=== PATIENT | female | born 1985 | race Caucasian/White ===

== ENCOUNTER 2016-11-25 12:03 | Inpatient (IN) ==
[2016-11-25] MEDS ORDERED: ATIVAN ONE (12:10)
[2016-11-25] MEDS ORDERED: NS 1,000 ML IV ONE (12:22)
[2016-11-25 12:56] LABS: MANUAL DIFF NEEDED? NO
[2016-11-25 13:08] LABS: BASO% 0.2 % (0.0-0.8); EOS# 0.09 X1000 (0.0-0.7); HEMATOCRIT 38.9 % (37.0-47.0); HEMOGLOBIN 12.8 g/dL (12.0-16.0); LYMPH# 3.18 X1000 (1.2-3.4); LYMPH% 36.4 % (20.5-51.1); MCH 31.8 PG (27-31); MCHC 32.9 g/dL (33-37); MCV 96.8 FL (81-99); MONO# 0.84 X1000 (0.11-0.59); MONO% 9.6 % (1.7-9.3); NEUT% 52.8 % (42.2-75.2); PLT 362 X1000 (130-400); RBC 4.02 XMIL (4.2-5.4)
[2016-11-25 13:21] LABS: AGAP 15; ALKALINE PHOSPHATASE 70 U/L (32-104); BUN 11 mg/dL (8-22); CALCIUM 8.9 mg/dL (8.8-10.2); CHLORIDE 104 mmol/L (98-107); COSMO 281; GOT 12 U/L (10-30); GPT < 5 U/L (10-36); MAGNESIUM 2.1 mg/dL (1.5-2.7); POTASSIUM 4.2 mmol/L (3.5-5.1); SODIUM 142 mmol/L (136-145); TCO2 23 mmol/L (25-35); TOTAL BILIRUBIN 0.27 mg/dL (0.20-1.00); TOTAL PROTEIN 6.5 g/dL (6.3-8.3)
[2016-11-25 13:49] LABS: URINE CULTURE NEEDED? NO; URINE MICRO REVIEW NEEDED? NO; URINE SOURCE CATH
[2016-11-25 14:07] LABS: BILIRUBIN URINE NEGATIVE (NEGATIVE); BLOOD URINE LARGE (NEGATIVE); COLOR YELLOW; GLUCOSE URINE NEGATIVE (NEGATIVE); LEUKOCYTES URINE NEGATIVE (NEGATIVE); NITRITE URINE NEGATIVE (NEGATIVE); PH URINE 6.5; PROTEIN URINE TRACE mg/dL (NEGATIVE); SP GRAVITY URINE 1.022; TURBIDITY URINE HAZY (CLEAR); UR EPITHELIAL CELLS <10 /HPF (<10); URINE BACTERIA NEGATIVE /HPF; URINE RBC TNTC /HPF (<10); URINE WBC <10 /HPF (<10); UROBILINOGEN URINE 2 mg/dL (NORMAL)
[2016-11-25 14:08] LABS: UR AMPHETAMINES QUAL NONE DETECTED (NONE DETECT); UR BARBITUATES QUAL NONE DETECTED (NONE DETECT); UR BENZODIAZEPIN QUAL PRESUMPTIVE POSITIVE (NONE DETECT); UR CANNABINOIDS QUAL PRESUMPTIVE POSITIVE (NONE DETECT); UR COCAINE QUAL PRESUMPTIVE POSITIVE (NONE DETECT); UR METHADONE QUAL NONE DETECTED (NONE DETECT); UR OPIATES QUAL NONE DETECTED (NONE DETECT); UR OXYCODONE QUAL NONE DETECTED (NONE DETECT); UR PCP QUAL NONE DETECTED (NONE DETECT)
--- NOTE | 2016-11-25 14:15 | Diag Imaging Result Doc PS360 ---
EXAM: CHEST-PORTABLE HISTORY: AMS TECHNIQUE: Erect AP portable at 1411 COMMENT: There is no evidence of acute cardiac or pulmonary disease. Compared to the previous study of 04/11/2016 there is been no significant change in the appearance of the chest. IMPRESSION: No acute disease. Electronically signed by Narinder Wall 11/25/2016 2:13 PM
--- NOTE | 2016-11-25 14:34 | Diag Imaging Result Doc PS360 ---
EXAM: HEAD W/O CONTRAST HISTORY: AMS TECHNIQUE: CT of the head without contrast COMMENT: There is no evidence of mass effect, bleed, abnormal extra-axial fluid collection, hydrocephalus or acute bony abnormality. Compared to 04/27/2016 the appearance of the brain has not changed significantly. IMPRESSION: No evidence of acute intracranial disease. Electronically signed by Narinder Wall 11/25/2016 2:32 PM
[2016-11-25] MEDS ORDERED: KEPPRA 500 MG in NS 100 ML IV SCH (15:15)
[2016-11-25] MEDS ORDERED: NICODERM PATCH TD ONE (15:32)
--- NOTE | 2016-11-25 17:03 | HISTORY AND PHYSICAL ---
NEUROLOGIST: Lori Garcia III, MD CHIEF COMPLAINT: Seizures. HISTORY OF PRESENT ILLNESS: Ms. Fernandez is a 31-year-old, female with a history of seizure disorder and asthma, as well as polysubstance dependence who presents with reported seizures that began last night. The patient reports that when she does not have her Xanax, she almost always has a seizure. She reports buying Xanax illicitly because she cannot find a prescriber. Her last dose was around a week ago. Her boyfriend at the bedside reports that she had an episode of tonic- clonic-type seizure last night and again this morning and she was then brought to our ER. In the ER, she had a head CT done which did not show anything acute. Chest x-ray was also done and was found to be negative. Laboratory data is unremarkable with the exception of a toxicology which was positive for benzodiazepines, cocaine and cannabinoids. Patient reports using illicit opiates, illicit cannabinoids, illicit benzodiazepines. She denies any cocaine use, but reports it could have been in some marijuana she smoked last night. She is currently awake and somewhat agitated, but she follows commands and is alert and oriented and has no focal deficits. She is now going to be admitted to the ICU for further treatment and evaluation. PAST MEDICAL HISTORY: 1. Asthma. 2. Seizure disorder. 3. Nicotine dependence. 4. Polysubstance dependence. 5. Anxiety. SURGICAL HISTORY: Eye surgery. SOCIAL HISTORY: She reports 1-1/2 pack of cigarettes a day. She denies any alcohol use, but reports illicit opiates and benzodiazepine and marijuana use. She reports that she is . She has a boyfriend and stepdaughter at the bedside. She is on disability. FAMILY HISTORY: Noncontributory. REVIEW OF SYSTEMS: Fourteen-point review of systems obtained and found to be negative with the exception of the HPI. HOME MEDICATIONS: Currently being compiled. ALLERGIES: Amoxicillin, Toradol, sulfa and clindamycin. PHYSICAL EXAMINATION: VITAL SIGNS: Blood pressure 125/95, heart rate 70, respiratory rate 21, O2 saturation 99% on room air. Temperature is 99.7 degrees. GENERAL: This is a disheveled-appearing, unkempt 31-year-old female, lying in hospital bed in no acute distress. NEUROLOGIC: The patient is awake and alert. She is somewhat agitated at times , but she has no focal deficits. She does not appear to be postictal at this time. HEENT: Head is atraumatic and normocephalic. Her pupils are equal, but somewhat sluggish bilaterally. Oral mucosa is moist. Trachea is midline. There is no JVD or carotid bruits. CHEST: Clear to auscultation bilaterally. CARDIOVASCULAR: Regular rate and rhythm. S1-S2 is noted. No murmurs. GI: Soft, nondistended, nontender. Bowel sounds positive. EXTREMITIES: Without edema, clubbing or cyanosis. Pulses 2+ bilaterally. DIAGNOSTIC DATA: Head, CT and chest x-ray are negative. WBC 8.73, hemoglobin 12.8, hematocrit 38.9, platelet count is 362,000. Sodium 142, potassium 4.2, chloride 104, CO2 23, anion gap 15, BUN 11, creatinine 0.9, glucose 77, calcium 8.9, magnesium 2.1. LFTs within normal limits. UA does not show anything acute. Toxicology is positive for benzodiazepines, cocaine and cannabinoids. Alcohol level is 0. ASSESSMENT AND PLAN: 1. Seizures: We will start the patient on keppra and Xanax 0.5 mg [address] and consult Dr. Garcia. We will also have IV Ativan for seizures. 2. Polysubstance dependence: We have advised the patient against using any illicit substances as this can obviously trigger seizures. Patient verbalized understanding. 3. Asthma: Chest x-ray is negative. Lungs are clear. Patient denies any shortness of breath. We will give her p.r.n. nebs as necessary. 4. Deep vein thrombosis prophylaxis will be provided with SCDs. Further recommendations to follow. Dictated by AYUSH Bañuelos for Abhijeet Ivreson MD cc: AYUSH Bañuelos MD [facility]
[2016-11-25] MEDS ORDERED: NS 1,000 ML ONE (18:02)
[2016-11-25] MEDS: ATIVAN IV PRN (18:03)
[2016-11-25] MEDS: NS 1,000 ML IV SCH (18:08)
[2016-11-25] MEDS: XANAX PO SCH (21:17)
[2016-11-25] MEDS: TYLENOL PO PRN (21:17)
[2016-11-26] MEDS: ATIVAN IV PRN (04:43)
[2016-11-26 05:45] LABS: HEMATOCRIT 36.9 % (37.0-47.0); HEMOGLOBIN 11.9 g/dL (12.0-16.0); MCH 31.5 PG (27-31); MCHC 32.2 g/dL (33-37); MCV 97.6 FL (81-99); MPV 10.4 FL (7.4-10.4); RBC 3.78 XMIL (4.2-5.4)
--- NOTE | 2016-11-26 05:47 | EKG Report ---
Test Performed on : 11/25/2016 12:20:28 PM Test Reason : AMS Blood Pressure : / mmHG Vent. Rate : 088 BPM Atrial Rate : 088 BPM P-R Int : 120 ms QRS Dur : 068 ms QT Int : 374 ms P-R-T Axes : 070 050 054 degrees QTc Int : 452 ms Normal sinus rhythm. Septal infarct , age undetermined Abnormal ECG When compared with ECG of 30-AUG-2014 06:25, Septal infarct is now present Unconfirmed Result
--- NOTE | 2016-11-26 05:47 | EKG Report ---
Test Performed on : 11/25/2016 6:31:34 PM Test Reason : AMS Blood Pressure : / mmHG Vent. Rate : 071 BPM Atrial Rate : 071 BPM P-R Int : 114 ms QRS Dur : 062 ms QT Int : 382 ms P-R-T Axes : 093 046 037 degrees QTc Int : 415 ms Normal sinus rhythm. Normal ECG When compared with ECG of 25-NOV-2016 12:20, (Unconfirmed) No significant change was found RSR' in V2 - historical T wave inversion less evident in V2 Confirmed by Jerry Crowe DO ([id number]) on 11/29/2016 7:01:34 AM
[2016-11-26 06:03] LABS: AGAP 11; BUN 13 mg/dL (8-22); CALCIUM 8.2 mg/dL (8.8-10.2); CHLORIDE 101 mmol/L (98-107); COSMO 273; MAGNESIUM 1.9 mg/dL (1.5-2.7); POTASSIUM 4.1 mmol/L (3.5-5.1); SODIUM 137 mmol/L (136-145); TCO2 25 mmol/L (25-35)
[2016-11-26] MEDS: TYLENOL PO PRN (06:25)
[2016-11-26] MEDS: NS 1,000 ML IV SCH (08:32)
[2016-11-26] MEDS: XANAX PO SCH (08:32)
[2016-11-26] MEDS: KEPPRA PO SCH ×2 (08:32→09:53)
[2016-11-26] MEDS ORDERED: ULTRAM PO PRN (08:59)
[2016-11-26] MEDS ORDERED: XANAX PO SCH ×2 (09:01→21:00)
[2016-11-26 11:08] VITALS: BP 112/80
[2016-11-26] MEDS ORDERED: FOLIC ACID PO SCH (12:30)
--- NOTE | 2016-11-26 13:23 | PROGRESS NOTE ---
DATE: 11/26/2016 SUBJECTIVE: This patient is laying comfortably in bed. She is complaining of headache and right knee pain. The right knee pain is secondary to trauma. Apparently, she had a seizure, but she was responding to commands during the seizures. 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 Neurology department has been consulted. They will do an EEG to corroborate or rule out any seizure disorder. This patient has been taking multiple drugs including cannabinoids, cocaine and benzodiazepine. Apparently, she has been on Xanax since the age of 16, and she has been getting her Xanax 1 mg twice a day in the streets. So for now, I will keep this patient on Xanax 0.5 mg b.i.d. I am not quite sure when was the last time she took Xanax outside this hospital, but I do not want this patient to withdraw during the hospitalization or afterwards. OBJECTIVE: Vital Signs: Temperature 98.5, pulse 76, respiratory rate 18, blood pressure 112/80, oxygen saturation 97% on room air. HEENT: Head normocephalic. No trauma. PERRLA. Poor dentition. Neck: Supple. No JVD. No masses. Central trachea. Chest: Clear to auscultation. No wheezing. No rales. Cardiovascular: RRR. Abdomen: Soft, nontender, nondistended. Extremities: No edema. No clubbing. No cyanosis. She has edema and redness at the level of the lateral part of her knee, secondary to trauma. Neurological: The patient is completely alert and oriented x3. She moves all 4 extremities. She is answering all my questions properly. LABORATORY: WBC 7.2, hemoglobin 11.9, hematocrit 36.9, platelets 277. Sodium 137, potassium 4.1, chloride 101, bicarbonate 25, BUN 13, creatinine 0.7, glucose 78, calcium 8.2. Folate 5.9. B12 of 297. TSH 1.22. ASSESSMENT AND PLAN: 1. Seizure disorder. I started this patient on Keppra once a day. I will continue for now with Xanax 0.5 mg twice a day to prevent withdrawal/seizures. We will continue also with Ativan p.r.n. seizures. Neurology Department is on board and they will do an EEG, to see if she has some kind of seizure activity. This is probably related with pseudoseizures. 2. Polysubstance dependence. This patient has been highly advised against drug abuse. I will continue with daily cessation education. 3. History of asthma, aware. 4. Folate deficiency. I will start this patient on folic acid. 5. Anemia, likely macrocytic, secondary to folate deficiency. 6. Deep vein thrombosis prophylaxis with sequential compression devices. cc: Abhijeet Iverson MD
--- NOTE | 2016-11-26 15:02 | CONSULTATION ---
DATE OF CONSULTATION: 11/26/2016 REASON FOR CONSULTATION: The patient is seen in consultation at the request of Dr. Antoine for evaluation of seizure. HISTORY OF PRESENT ILLNESS: A 31-year-old right-handed female with history of seizures, polysubstance abuse is admitted overnight with seizures. Apparently her boyfriend stated that she had a tonic-clonic type seizure the night prior and then again in the morning she came to the ED. The patient tells me that she lost her 12-year-old brother to seizures when she was 16 years old. She had a difficult time dealing with this and had lots of anxiety therefore her primary doctor put her on alprazolam around that time. Sometime over the last handful of years she has began to have seizures that she states only occur when she runs out of her Xanax. She has not had anyone prescribing Xanax for some time and has been getting them off the streets. She is very clear that she never has seizures unless she runs out of Xanax. She states this many times. There is also some note that her seizures seem to worsen when stress is occurring such as the loss of family members. She mentions the recent of her grandparents, another brother and her . Says she has taken Keppra and Dilantin in the past but says that they did not help her seizures. I have reviewed Dr. Garcia's clinic note from 1 year ago and he indicates previous trials of several medications as well though this was with another physician. He has only seen her on 2 occasions and on the 1st occasion he did prescribe oxcarbazepine but the patient did not follow up and the patient had subsequently stated on her 2nd visit a year ago that she took 1 single half dose and did not take that anymore. In discussing typical antiepileptic medications she does not seem interested in these. She is more interested in alprazolam to treat her anxiety. Of note, her urine toxicology on admission was positive for opiates, cannabinoids and benzodiazepines. It was also positive for cocaine. She denies the use of cocaine but does say that maybe it was put in the marijuana that she smoked. She does not have prescriptions for any of the medications. Her last dose of alprazolam was 1 week ago. She is hoping that she can get alprazolam prescription that would last her until she is able to make it to her new primary care or mental health appointment which is the of this month. PAST MEDICAL HISTORY: Asthma, seizures, nicotine and polysubstance dependence and abuse, anxiety. SOCIAL HISTORY: She is a current cigarette smoker. She denies alcohol but does report buying opiates and benzodiazepines off the street as well as using marijuana. She says that her in March of this past year. She lives with her boyfriend. She is on disability. Her parents live nearby. She has 2 living sisters. FAMILY HISTORY: Her younger brother was born with seizures. No other seizures. REVIEW OF SYSTEMS: Balance of 12 was conducted and is otherwise negative except that detailed in the HPI. She does complain of generalized pain. ALLERGIES: To amoxicillin, Toradol, sulfa, clindamycin. MEDICATIONS: Tylenol, alprazolam 1 mg p.o. b.i.d. which was started this hospitalization, Keppra 500 mg p.o. daily, tramadol p.r.n., Ativan p.r.n. PHYSICAL EXAM: Vital Signs: Afebrile, blood pressure 109/85, pulse 89, respirations 16. General: She is a female lying in bed in no acute distress. She is cooperative. HEENT: Remarkable only for poor dentition. Neck: Supple. No meningismus. Trachea midline. Cardiovascular: Regular rate and rhythm. Intact pulses. Abdomen: Soft, nontender. Nondistended. Lungs: No increased work of breathing. Normal chest rise and expansion. Skin: Notable for multiple tattoos. Extremities: Warm, well perfused. No edema. Intact pulses. Neurologic: Mental status. Awake, alert, oriented. Speech is fluent. Occasionally she misspeaks but quickly corrects herself. An example of this would be that she saw Dr. Lee who has been gone for many years but quickly says not Dr. Lee, Dr. Garcia. Recent and remote memory are intact. Cranial nerves. JONES. Conjugate gaze. Ocular movements intact. Face symmetric with equal activation. Tongue is midline. Palate elevates symmetrically. Shoulder shrug is full. Motor exam. No drift. Strength is symmetric, 5/5 throughout. Coordination. No evidence of incoordination on exam. Sensory findings. No evidence of sensory loss on exam to gross testing. Reflexes are 1 to 2+ symmetric. Toes are downgoing. No clonus. DIAGNOSTICS: Noncontrast head CT was personally reviewed. There are no acute findings. LAB WORK: Lab work was all reviewed in the chart. Notable normal white count. Chemistry panel normal, calcium 8.9 on admission, slightly low this morning 8.2, liver function tests are not elevated. Urinalysis trace protein, large blood, too many to count urine red blood cells. Toxicology positive for benzodiazepines, cocaine and cannabinoids. ASSESSMENT AND PLAN: 31-year-old right-handed female with history of seizures and polysubstance dependence and abuse who presents after having had seizures. 1. Seizures. Suspect provoked secondary to benzodiazepine withdrawal and/or substance abuse. She has not had rx for Xanax for some time now and has been getting them off the street. Dr. Garcia is not prescribing xanax for her. Her urine toxicology was positive for benzodiazepines but she says her last Xanax was a week ago. This may represent a relative withdrawal. Will obtain routine EEG for a more complete evaluation to assess for evidence of increased propensity for seizures. I did have a conversation with the patient regarding antiepilepsy medications should the EEG indicate that she would benefit from them, but she seems more interested in having a Xanax prescription. I did discuss with her that I will not be writing a prescription for Xanax and that I do not treat anxiety. I also advised that benzodiazepines may not be the best class of medications for her to be on and that there are other medications to treat anxiety but she says that none of those medications work. I would consider a short taper from the benzodiazepine to prevent withdrawal. Further recommendations pending the EEG. Thank you for this consultation. cc: Johanna Greenwood MD [facility]
--- NOTE | 2016-11-26 17:34 | EEG REPORT ---
DATE: 11/26/2016 REFERRING PHYSICIAN: 1. Johanna Greenwood MD 2. Abhijeet Iverson MD EEG NUMBER: [id number] MANAGER TRANSFER: Shelly Gómez BACKGROUND INFORMATION/TECHNIQUE: A digitally recorded EEG is obtained with 1 additional channel for EKG. HISTORY OF PRESENT ILLNESS: A 31-year-old, right-handed female with polysubstance abuse, admitted with a question of seizures. EEG is ordered to detect evidence of increased propensity for seizure disorder. MEDICATIONS: Her toxicology was positive for benzodiazepines, cocaine, and marijuana. She was given a dose of Keppra. EEG FINDINGS: There are brief periods of a 9 hertz, posterior dominant alpha rhythm seen symmetrically in the occipital regions. The background consists of mixed alpha and beta ranged frequencies. Excessive diffuse beta is seen throughout the record. No focal slowing. No epileptiform discharges. No seizures. Hyperventilation induced mild diffuse physiologic slowing. Photic stimulation did induce a normal photic driving response. The patient is awake for the entire study. No stage 2 sleep was seen. The EKG reveals regular RR intervals. IMPRESSION AND CLINICAL CORRELATION: Normal routine EEG in the awake state. Of note, a normal EEG does not rule out epilepsy. Clinical correlation is advised. Excessive beta is often seen as a medication effect, most commonly with the use of benzodiazepines. This most likely correlates with her benzodiazepine usage. cc: Johanna Greenwood MD
--- NOTE | 2016-11-26 19:24 | DISCHARGE SUMMARY ---
ADMISSION DATE: 11/25/2016 DISCHARGE DATE: 11/26/2016 CONSULTATIONS: Dr. Johanna Greenwood with neurology. PROCEDURES: 1. Head CT showed no evidence of acute intracranial disease. 2. EEG was normal. DISCHARGE DIAGNOSES: 1. Seizure disorder. The patient was started on Keppra once a day. Continued on Xanax 0.5 mg twice a day to prevent withdrawal seizures. EEG was normal. Head CT normal. 2. Polysubstance dependence. The patient has been highly advised against drug abuse. 3. History of asthma aware. 4. Folate deficiency. Continue supplementation. 5. Anemia microcytic secondary to folate deficiency. HOSPITAL COURSE: Ms. Fernandez is a 31-year-old female with history of seizure disorder, asthma, as well as polysubstance dependence, who presented to the ED with a reported seizure that began the night before. She reported that when she does not have her Xanax, she almost always has a seizure. She reports finding Xanax illicitly because she cannot find a prescriber. Her last dose was a week ago. Her boyfriend who was with her at the bedside reported episode of tonic clonic type seizure the night before and then again in the morning and then she was brought to the ED. Head CT did not show anything acute. Chest x-ray was negative. Laboratory data was unremarkable with exception of toxicology that was positive for benzos, cocaine and cannabis. The patient reports she is in to illicit opiates, cannabis and benzos, but denied cocaine use, but reports it could been in some marijuana that she had smoked the night prior. She was admitted to the ICU for evaluation and placed on seizure precautions. She was initiated on Keppra with a neurology consult. She was educated on illicit substance abuse cessation. She had a normal head CT as well as a normal EEG. Apparently in the ICU she had a seizure, but was responding to commands during the seizure. They believe it was pseudoseizure. The patient has been on 1 mg Xanax twice a day since the age of 16. She has being getting it in the street. The patient was initiated on Keppra while in the hospital; however, she will not continue at discharge, but she will be discharged on Xanax at a lower dose at 0.5 mg p.o. b.i.d. VITAL SIGNS AT TIME OF DISCHARGE: Temperature is 98.5 degrees, heart rate 76, respirations 18, blood pressure 112/80, O2 is 97% on room air. DISCHARGE DIET: Regular. DISCHARGE MEDICATIONS: As per Dr. Iverson: 1. Percogesic 30/12.5 mg 1 each p.o. q. 6 to q. 8 hours p.r.n. 2. Xanax 0.5 mg p.o. b.i.d. 3. Oragel 1 application topical 4 times a day p.r.n. 4. Folic acid 1 mg p.o. daily. 5. Motrin 400 mg p.o. q. 6 hours. FOLLOWUP: Ms. Fernandez is being discharged back home with her family. She will follow up with her primary care doctor on 12/05/2016. She will return to the ED for any worsening of symptoms. She has been educated on polysubstance abuse and illicit drug use, and the need to quit. Discharge time 30 minutes. Dictated by AYUSH Fontaine for Abhijeet Iverson MD cc: Abhijeet Iverson MD
[2016-11-26] MEDS ORDERED: MOTRIN PO SCH (20:00)
--- NOTE | 2016-11-29 17:49 | PROVIDER DOCUMENTATION ---
This chart was entered by Myla Hunt Scribe, acting as scribe for Kenisha Goel MD. HPI-Neurological Disorder - General Chief Complaint: Seizure Stated Complaint: poss. seizure Time Seen by Provider: 11/25/16 12:14 Source: patient Allergies/Adverse Reactions: Patient Allergies Allergy/AdvReac Type Severity Reaction Status Date / Time amoxicillin [Amoxicillin] Allergy Mild HIVES Verified 11/28/16 17:52 ketorolac tromethamine * Allergy Mild HIVES Verified 11/28/16 17:52 [From Toradol] Sulfa (Sulfonamide Allergy Mild HIVES Verified 11/28/16 17:52 Antibiotics) clindamycin AdvReac Mild yeast Verified 11/28/16 17:52 infection Home Medications: Home Medication List Medication Instructions Recorded Confirmed Last Taken Type Alprazolam [Xanax] 0.5 mg PO BID #15 tablet 11/26/16 11/28/16 11/28/16 Rx Folic Acid 1 mg PO DAILY #90 tablet 11/26/16 11/28/16 11/28/16 Rx Ibuprofen [Motrin] 400 mg PO Q6HR #10 tablet 11/26/16 11/28/16 11/28/16 Rx Cephalexin [Keflex] 500 mg PO BID 11/28/16 11/28/16 11/28/16 History - History of Present Illness-Neuro Nature of Presenting Problem: Pt is 31 y/o F presents to the ED via EMS with seizure activity. Pt states 18 to 20 seizures today. Pt states taking Klonopin this am. Pt states headache. Pt denies fever Headache Location: reports: global. denies: frontal, temporal, occipital, parietal Severity: reports: mild Onset/Duration: reports: just prior to arrival Timing: reports: improving Context: reports: seizure activity Character of Altered Mental Status: reports: N/A Any recent trauma/injury?: reports: none Character of Deficits: denies: new weakness, altered sensation, vision problem/ glaucoma, impaired speech, impaired swallowing, decreased ability to stand, decreased ability to walk, falling New weakness or altered sensation location:: reports: none Cognitive Baseline: alert, oriented x3 Gait Baseline: walks without assistance Associated Symptoms: reports: seizures. denies: short of breath, headache, decreased ability to walk or stand, fainting, dizziness, confusion, chest pain, neck/back pain, fatigue, fever/chills, insomnia, loss of consciousness, muscle spasms, nausea, numbness in legs/feet, paresthesia, diaphoretic, ringing in ears , sleepy, slurred speech, tingling in legs/feet, trouble walking, vomiting, vision changes, weakness Similar Symptoms Previously?: Yes (presents since this am ) Recently seen or treated by another doctor?: No - Seizure First time to have a seizure?: No Witnessed seizure?: Yes Episode details: reports: unknown duration, unknown number Episode Frequency: frequent episodes Preceding symptoms/context:: none Character of Seizure: reports: generalized shaking all over Post-ictal Symptoms: reports: none Seizure related injury: none Review of Systems - Adult - REVIEW OF SYSTEMS - ADULT Constitutional: denies: chills, fever Eyes: denies: blurred vision, double vision, redness Ears, Nose, Mouth & Throat: denies: ear pain, nose pain, throat pain Cardiovascular: denies: chest pain, heart murmur, irregular heart rate, palpitations Respiratory: denies: cough, shortness of breath, wheezing Gastrointestinal: denies: abdominal pain, diarrhea, nausea, vomiting Genitourinary: denies: dysuria, flank pain, hematuria Musculoskeletal: denies: back pain, joint pain, neck pain Integumentary: denies: hives, itching, rash Neurological: reports: seizure. denies: dizziness/vertigo, headache/migraines, numbness, syncope Psychiatric: reports: no symptoms reported Endocrine: reports: no symptoms reported Hematologic/Lymphatic: reports: no symptoms reported Allergic/Immunologic: reports: no symptoms reported All Other Systems: Reviewed and Negative Past History - Adult - PAST MEDICAL HISTORY-ADULT Review of Records: reports: Nursing Assessment Review, Medications Reviewed, Social history reviewed & non-contributory. Major Childhood Illnesses: reports: denies history Cardiovascular: reports: denies history Respiratory: reports: asthma, COPD Gastrointestinal: reports: denies history Obstetrical/Gynecological: reports: denies history Genitourinary: reports: denies history Musculoskeletal: reports: arthritis, chronic pain, fibromyalgia Neurological: reports: headaches/migraines, Seizures/Epilepsy Psychiatric: reports: anxiety, depression, psychiatric problems, suicide attempt Endocrine/Immune: reports: denies history Other Conditions: reports: denies history - PRIOR SURGERIES/PROCEDURES Surgical/Procedure History: reports: tonsillectomy, other (eye surgery) - PRIOR HOSPITALIZATIONS Prior Hospitalizations: reports: none - IMMUNIZATION STATUS Childhood Immunizations: See Nurse Assessment Flu Vaccine: See Nurse Assessment - FAMILY HISTORY Family History: reviewed, not pertinent - SOCIAL HISTORY Smoking: cigarettes, greater than 1 pack/day Provider spent 3-5 mins advising pt. on dangers of tobacco.: Discussed manners to quit use, and f/u contacts for add'l counseling. Substance Use: denies, marijuana Living Situation: family Physical Exam- Neurological - Physical Exam-Neuro Initial Vital Signs Reviewed: Yes General Appearance: appears well, alert, no apparent distress. negative: lethargic, slow to respond Eye Exam: bilateral eye: normal inspection, PERRL, EOMI HENMT: normocephalic/atraumatic, moist mucous membranes, normal ENT inspection. negative: angioedema, hearing deficit Head Injury: no evidence of injury. negative: ecchymosis, swelling, tenderness Neck: non-tender, normal inspection. negative: lymphadenopathy, tender lateral Respiratory: chest non-tender, lungs clear, normal breath sounds. negative: crackles, rhonchi, increased rate Cardiovascular: normal peripheral pulses, regular rate, rhythm. negative: tachycardia, systolic murmur Abdominal Exam: normal bowel sounds, non tender, soft. negative: distended, rebound, hernia Lymphatic: no adenopathy. negative: enlargement, streaking Extremity: normal range of motion, normal inspection. negative: deformity, erythema, swelling project buyer Exam: normal hearing, normal speech, PERRL. negative: abnormal speech, facial droop Motor/Sensory: no motor deficit, no sensory deficit, no pronator drift. negative: pronator drift (R), pronator drift (L), sensory deficit Neurologic: grossly normal. negative: aphasia, facial droop Integumentary: normal color, normal turgor, warm/dry. negative: diaphoresis, ecchymosis, erythema, swelling Psych/Mental Status: normal mood/affect, oriented x 3. negative: paranoid, tearful Progress - PLAN OF CARE/RESULTS Progress/Plan/Lab Results: Bedside Urine ED: Urine Bedside Start: 11/25/16 13:17 Freq: ORDERED Status: Complete Activity Type Activity Date Activity User E-Sign Co-Sign Detail Recorded Client Recorded Date Recorded By Document 11/25/16 13:21 [id number] 11/25/16 13:23 [id number] 11/25/16 13:21 Point of Care [Bedside Point of Care] -Lot # [id number] - Results Negative -Control Line Visible? Yes Orders Category Date Time Status Cardiac Monitoring DIRECTED Care 11/25/16 12:22 Completed ED: Urine Bedside ORDERED Care 11/25/16 13:17 Completed Finger Stick Blood Sugar (ED) DIRECTED Care 11/25/16 12:22 Completed Saline Loc NOW Care 11/25/16 12:22 Completed CHEST-PORTABLE [RAD] Stat Exams 11/25/16 12:[address] HEAD W/O CONTRAST [CT] Stat Exams 11/25/16 12:23 Completed ALCOHOL BLOOD Stat Lab 11/25/16 12:48 Completed CBC WITH ELECTRONIC DIFF [HEME] Stat Lab 11/25/16 12:48 Completed COMPREHENSIVE METABOLIC PANEL [CHEM] Stat Lab 11/25/16 12:48 Completed MAGNESIUM [CHEM] Stat Lab 11/25/16 12:48 Completed URINALYSIS W/POSS RFLX CULT-1 [URINALYSIS] Stat Lab 11/25/16 13:15 Completed URINE DRUG SCREEN Stat Lab 11/25/16 13:15 Completed 0.9% Sodium Chloride Inj [Ns] 1,000 ml Med 11/25/16 12:22 Discontinued IV 999 mls/hr Levetiracetam [Keppra] 500 mg Med 11/25/16 15:15 Discontinued 0.9% Sodium Chloride Inj [Ns] 100 ml IV Q12H Lorazepam [Ativan] Med 11/25/16 12:10 Discontinued 2 mg .ROUTE .STK-MED ONE Nicotine Patch [Nicoderm Patch] Med 11/25/16 15:32 Discontinued 21 mg TD NOW ONE Pulse Oximetry Stat Oth 11/25/16 12:22 Completed EKG [EKG] Stat Ther 11/25/16 12:22 Draft Result Diagrams: 11/26/16 04:30 11/26/16 04:30 - EKG 1 Time of EKG reading by physician:: 12:20 EKG Read and Signed by:: Kenisha Goel EKG Interpretation (*Must complete 3 of following elements*): Abnormal Rate: 88 Rhythm: normal sinus rhythm Comments: septal infarct, age undetermined - XRAY 1 XRAY Study: Chest XRAY Interpretation: no acute disease - CT/MRI 1 CT Study: Head Impression: Normal CT Results: no evidence of acute intracranial disease - CONSULTS/PCP/HOSPITALIST Notification #1 *Consult/PCP/Hospitalist*: AYUSH Guadalupe Time Discussed: 14:57 (Dr. Antoine accepted admit ) Reason/Comments: Dr. Goel consulted with AYUSH Guadalupe about admit of PT Consult Disposition: Admit Departure - Departure Date of Disposition Decision: 11/25/16 Time of Disposition Decision: 14:58 DIAGNOSIS: Drug abuse, Seizure Disposition: ADMITTED INPATIENT 09 Certified Medical Emergency: Emergent Condition: Stable - Critical Care Note This patient required my direct & personal management of CC.: Yes Total Time (mins): 50 Critical Care Statement: This patient required my direct personal management to treat or rule out processes, the absence of which, could potentiallly result in sudden, clinically significant life or limb threatening deterioration. Attestation - Physician/ CASH Attestation Patient care was provided by Advanced Practice Provider:: No The physician spent face to face time with patient:: Yes Advanced Practice Provider documentation review:: Supervising physician onsite and consulted in the evaluation and care of this patient. The physician did have a face to face encounter with the patient. This chart was documented by the indicated scribe, (Myla Hunt Scribe) and accurately reflects the services I performed and decisions made by me, Kenisha Goel MD, as attested by the provider's signature.
== END 2016-11-26 15:18 | disposition home or self-care (01) ==
LOC: ED 12:03 → ICU 15:35
PROVIDERS: ATTEND Internal Medicine